=== PATIENT | male | born 1990 | race Caucasian/White ===

== ENCOUNTER 2016-09-20 19:18 | Emergency (ER) | payer MEDICAID, OTHER ==
[~2016-09-20] VITALS: Ht 167.6 cm; Wt 70.4 kg
[2016-09-20 19:32] VITALS: Ht 167.6 cm; Wt 70.4 kg
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
[2016-09-20] MEDS ORDERED: IBUP-1542 PO (21:53)
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
== END 2016-09-20 22:38 | disposition home or self-care (01) ==
LOC: FTE 19:18
DX: S09.90XA Unspecified injury of head, initial encounter (principal); S19.9XXA Unspecified injury of neck, initial encounter; S49.92XA Unspecified injury of left shoulder and upper arm, initial encounter; F17.210 Nicotine dependence, cigarettes, uncomplicated; V89.2XXA Person injured in unspecified motor-vehicle accident, traffic, initial encounter
CPT/HCPCS: 72040; 73030; Z7502

== ENCOUNTER 2017-09-25 22:24 | Emergency (ER) | END 2017-09-25 22:35 | disposition left against medical advice (07) ==